=== PATIENT | female | born 1985 | race Two or more races ===

== ENCOUNTER 2021-02-06 18:27 | Emergency (ER) | payer MEDICARE, MEDICAID, SELFPAY ==
--- NOTE | ~2021-02-06 | XR_ITS ---
EXAMINATION: XR CHEST CLINICAL INFORMATION: Shortness of breath. Chest pain. COMPARISON: Chest x-ray 09/12/2012 TECHNIQUE: Frontal view of the chest was obtained. 1913 hours FINDINGS: No significant abnormality is noted involving the heart, lungs, mediastinum, bony thorax or soft tissues. XR/XR chest 1V IMPRESSION: Unremarkable examination.
[2021-02-06 19:09] VITALS: BP 127/79; PULSE 76; RESP 16; TEMP 36.9; O2SAT 99; BMI 17.6
--- NOTE | 2021-02-06 19:16 | ECG_ITS ---
Test Reason : sob Blood Pressure : / mmHG Vent. Rate : 077 BPM Atrial Rate : 077 BPM P-R Int : 144 ms QRS Dur : 100 ms QT Int : 372 ms P-R-T Axes : 081 065 069 degrees QTc Int : 420 ms Normal sinus rhythm Incomplete right bundle branch block Borderline ECG No significant changes when compared with the previous EKG of 12 september 2012 Referred By: Generic ED Physician Electronically Signed By:GULSHAN PISANO
[2021-02-06 19:33] LABS: MANUAL DIFF FLAG NO
[2021-02-06 19:37] LABS: Basophils Percent Auto 0.7 % (0-2); Eosinophils Absolute Auto 0.1 X10*3/uL (0.0-0.4); Eosinophils Percent Auto 1.7 % (0-4); Hematocrit 36.1 % (37.0-47.0); Imm Gran Abs Auto 0.01 X10*3/uL (0.00-0.03); Imm Gran Pct Auto 0.2 % (0.0-0.4); Lymphocytes Percent Auto 34.1 % (20-40); Mean Corpuscular HGB Conc 33.2 g/dl (31.0-35.0); Mean Corpuscular Hemoglobin 29.3 pg (27.0-33.0); Mean Corpuscular Volume 88.3 fL (80.0-98.0); Monocytes Absolute Auto 0.4 X10*3/uL (0.1-1.2); Monocytes Percent Auto 7.3 % (2-11); Neutrophils Absolute Auto 3.2 x10*3/uL (2.0-8.3); Platelet Count 294 X10*3/uL (160-400); Red Blood Count 4.09 X10*6/uL (4.20-5.50); Red Cell Distribution Width 11.9 % (11.0-16.0); White Blood Count 5.8 X10*3/uL (4.8-10.8)
[2021-02-06 19:52] LABS: COVID-19 Test Negative (Negative)
[2021-02-06 19:53] LABS: Anion Gap 10 (12-20); Blood Urea Nitrogen 17 mg/dL (9-16); Calcium 9.3 mg/dL (8.4-10.2); Carbon Dioxide 32 mmol/L (22-29); Chloride 104 mmol/L (96-108); Creatinine Clr Calc Pharmacy 54.6; Estimated Glomerular Filt Rate > 60; Glucose Random 83 mg/dL (60-115); Potassium 3.7 mmol/L (3.3-5.1); Sodium 142 mmol/L (135-145)
[2021-02-06 19:58] LABS: Troponin-I High Sensitivity < 3.5 ng/L (<3.5-17.0)
--- NOTE | 2021-02-06 20:58 | ED_ITS ---
HPI - SOB/Dyspnea General Chief Complaint: Dyspnea Stated Complaint: SOB/Lung pain Time Seen by Provider: 02/06/21 21:00 Source: patient Mode of arrival: ambulatory Limitations: no limitations History of Present Illness HPI Narrative: 35-year-old female presents with shortness of breath and ?funny feeling to the left chest ?. MD elicited complaint: shortness of breath Pertinent past history: other (Spontaneous pneumothorax) Onset (ago): day(s) (1) Context: other (History of spontaneous pneumothorax) Timing: intermittent Severity: mild Exacerbating factors: exertion and inspiration Relieving factors: rest Associated symptoms: denies other symptoms Treatment prior to arrival: none Related Data Previous Rx's Medication Instructions Recorded famotidine 20 mg tablet (Pepcid) 20 mg PO DAILY #30 tab 02/06/21 Allergies Allergy/AdvReac Type Severity Reaction Status Date / Time No Known Allergies Allergy Unverified 02/06/21 19:15 Review of Systems Review of Systems: Constitutional: No Weight loss, No Fever, No Chills, No Night Sweats, No Fatigue, No Malaise ENT/Mouth: No Hearing loss, No Ear Pain, No Nasal Congestion, No Sinus Pain, No Hoarseness, No sore throat, No Rhinorrhea, No Swallowing Difficulty Eyes: No Eye Pain, No Swelling, No Redness, No Foreign Body, No Discharge, No Vision Changes Cardiovascular: No Chest Pain, positive SOB, No Dyspnea on Exertion, No Ort hopnea, No Edema, No Palpitations Respiratory: No Cough, No Sputum, No Wheezing, No Smoke Exposure, No Dyspnea Gastrointestinal: No Nausea, No Vomiting, No Diarrhea, No Constipation, No abdominal Pain, No Hematochezia, No Melena Genitourinary: no irregular bleeding, No Dysuria, No Urinary Frequency, No Hematuria, No Urinary Incontinence, No Urgency, No Flank Pain, No Urinary Flow Changes, No Hesitancy Musculoskeletal: No joint pain, No Myalgias, No Joint Swelling Skin: No Skin Lesions, No rash Neuro: No Weakness, No Numbness, No Paresthesias, No Loss of Consciousness, No Dizziness, No Headache Psych: No Anxiety/Panic, No Depression, No SI/HI/AH/VH, No Social Issues Heme/Lymph: No Bruising, No Bleeding,No Lymphadenopathy Endocrine: No Polyuria, No Polydipsia, No Temperature Intolerance Yes all other systems are reviewed and are negative PMFSH Past Medical History Attestation statement: The following information was validated with the patient. Source: old records reviewed Medical History Asthma Heart murmur Pneumothorax Social History Social History Advance Directives: No Physical Exam Vital Signs: Vital Signs: Last Vital Signs Temp 98.4 F 02/06/21 19:09 Pulse 77 02/06/21 21:52 Resp 16 02/06/21 21:52 BP 108/67 02/06/21 21:52 Pulse Ox 99 02/06/21 21:52 BMI result Body Mass Index 17.6 Appearance: Alert. Oriented X3. No acute distress. Eyes: Pupils equal, round and reactive to light. ENT: Pharynx normal. Neck: Normal inspection. Neck supple. CVS: Normal heart rate and rhythm. Pulses normal. Respiratory: No respiratory distress. Breath sounds normal. Abdomen: Soft and nontender. Skin: Skin warm and dry. Normal skin color. Normal skin turgor. Extremities: No lower extremity edema. Gait well-balanced well coordinated. Neuro: No motor deficit. No sensory deficit. Cranial nerves 2-12 intact. Course Course Course Narrative: 35-year-old female presents with shortness of breath and a funny feeling left side of the chest. States this pain is a burning pressure. Patient does have a history of spontaneous pneumothorax and GERD. EKG shows incomplete right bundle branch block, does have a history of arrhythmia. Tropon in is negative. Carbon dioxide is elevated at 32, patient does smoke cigarettes. Even unlabored respirations. Chest x-ray is negative for acute findings. No indication of pneumothorax or other finding. Patient is speaking in complete sentence, even unlabored respirations. Afebrile. Nontoxic. Wells PE score is 0. No recent sick contacts. COVID test is negative. O2 sat 99% on room air. Plan of care is to have patient follow-up with Pulmonary. Will treat with Maalox and Pepcid for GERD. Patient was advised to follow-up with primary care physician for arrhythmia as well as follow-up. Patient agrees with this plan of care. Patient verbalized understanding of and agrees to plan care discharge home. MDM - SOB/Dyspnea Differential Diagnosis Differential diagnosis: Likely pneumonia, asthma with exacerbation, pleural effusion and anemia Medical Records Attestation: I reviewed the patient's medical records. Lab Data Attestation: I reviewed the patient's lab results. Result diagrams: 02/06/21 19:27 02/06/21 19:27 Labs: Lab Results 02/06/21 02/06/21 02/06/21 Range/Units 19:27 19:27 19:27 WBC 5.8 (4.8-10.8) X10*3/uL RBC 4.09 L (4.20-5.50) X10*6/uL Hgb 12.0 (12.0-16.0) g/dl Hct 36.1 L (37.0-47.0) % MCV 88.3 (80.0-98.0) fL MCH 29.3 (27.0-33.0) pg MCHC 33.2 (31.0-35.0) g/dl RDW 11.9 (11.0-16.0) % Plt Count 294 (160-400) X10*3/uL MPV 10.0 (9.4-12.3) fL Immature Gran % (Auto) 0.2 (0.0-0.4) % Neut % (Auto) 56.0 (45-73) % Lymph % (Auto) 34.1 (20-40) % [place] % (Auto) 7.3 (2-11) % Eos % (Auto) 1.7 (0-4) % Baso % (Auto) 0.7 (0-2) % Lymph # (Auto) 2.0 (1.2-4.9) X10*3/uL [place] # (Auto) 0.4 (0.1-1.2) X10*3/uL Eos # (Auto) 0.1 (0.0-0.4) X10*3/uL Baso # (Auto) 0.0 (0.0-0.2) X10*3/uL Abs Immat Gran (auto) 0.01 (0.00-0.03) X10*3/uL Absolute Neuts (auto) 3.2 (2.0-8.3) x10*3/uL Absolute Nucleated RBC 0.000 (0.0-0.012) X10*3/uL Nucleated RBC % (auto) 0.0 (0.0-0.2) /100WBC Sodium 142 (135-145) mmol/L Potassium 3.7 (3.3-5.1) mmol/L Chloride 104 (96-108) mmol/L Carbon Dioxide 32 H (22-29) mmol/L Anion Gap 10 L (12-20) BUN 17 H (9-16) mg/dL Creatinine 1.04 (0.5-1.4) mg/dL Estim Creat Clear Calc 54.6 Estimated GFR > 60 Random Glucose 83 (60-115) mg/dL Calcium 9.3 (8.4-10.2) mg/dL Troponin I High Sens < 3.5 (<3.5-17.0) ng/L COVID-19 (PATTI) (Negative) COVID-19 Clin Com 02/06/21 Range/Units 19:27 WBC (4.8-10.8) X10*3/uL RBC (4.20-5.50) X10*6/uL Hgb (12.0-16.0) g/dl Hct (37.0-47.0) % MCV (80.0-98.0) fL MCH (27.0-33.0) pg MCHC (31.0-35.0) g/dl RDW (11.0-16.0) % Plt Count (160-400) X10*3/uL MPV (9.4-12.3) fL Immature Gran % (Auto) (0.0-0.4) % Neut % (Auto) (45-73) % Lymph % (Auto) (20-40) % [place] % (Auto) (2-11) % Eos % (Auto) (0-4) % Baso % (Auto) (0-2) % Lymph # (Auto) (1.2-4.9) X10*3/uL [place] # (Auto) (0.1-1.2) X10*3/uL Eos # (Auto) (0.0-0.4) X10*3/uL Baso # (Auto) (0.0-0.2) X10*3/uL Abs Immat Gran (auto) (0.00-0.03) X10*3/uL Absolute Neuts (auto) (2.0-8.3) x10*3/uL Absolute Nucleated RBC (0.0-0.012) X10*3/uL Nucleated RBC % (auto) (0.0-0.2) /100WBC Sodium (135-145) mmol/L Potassium (3.3-5.1) mmol/L Chloride (96-108) mmol/L Carbon Dioxide (22-29) mmol/L Anion Gap (12-20) BUN (9-16) mg/dL Creatinine (0.5-1.4) mg/dL Estim Creat Clear Calc Estimated GFR Random Glucose (60-115) mg/dL Calcium (8.4-10.2) mg/dL Troponin I High Sens (<3.5-17.0) ng/L COVID-19 (PATTI) Negative (Negative) COVID-19 Clin Com See Note Imaging Data Chest x-ray: Attestation: I personally reviewed and interpreted this imaging study as follows: Radiologist's impression: EXAMINATION: XR CHEST CLINICAL INFORMATION: Shortness of breath. Chest pain. COMPARISON: Chest x-ray 09/12/2012 TECHNIQUE: Frontal view of the chest was obtained. 1913 hours FINDINGS: No significant abnormality is noted involving the heart, lungs, mediastinum, bony thorax or soft tissues. XR/XR chest 1V IMPRESSION: Unremarkable examination. ECG Data Attestation: I personally reviewed and interpreted this ECG as follows: ECG interpretation date: 02/07/21 ECG interpretation time: 19:20 Prior ECG tracings: not available for review Interpretation: Ventricular rate 77 beats per minute [place] interval 144 QRS 100 QT 372 QTC 420 normal sinus rhythm with incomplete right bundle-branch block no indication of ST elevation or depression no indication of ischemia. No prior EKGs for comparison. Discharge Plan Discharge Clinical Impression: Shortness of breath, Acid reflux Patient Disposition: Home, Self-Care Instructions: Gastroesophageal Reflux Disease (ED), Shortness of Breath (ED) Additional Instructions: You were evaluated for shortness of breath. Your chest x-ray is normal. Your EKG shows an incomplete right bundle branch block, and you do have a known cardiac arrhythmia. Please follow-up with primary care physician for further workup. Cardiac enzymes are negative. Lab values are within normal limits. You may also consider following up with primary care physician for reflux. I prescribed Pepcid. Please take 20 mg daily. Please stop smoking. For shortness of breath please follow-up with Pulmonary. I referred you to Dr. Esquivel. Please call and request an appointment. Thank you for choosing this emergency department for evaluation. Please follow-up with primary care physician as needed. Return to the emergency department for any new, concerning, or worsening symptoms. Prescriptions: New famotidine [Pepcid] 20 mg tablet 20 mg PO DAILY Qty: 30 RF: 3 Referrals: Ryder Esquivel MD [Physician] - 2 days (Shortness of breath, history of spontaneous pneumothorax) Stand Alone Forms: Work/School Release Interventions: ED Discharge Assessment Last Done: 02/06/21 21:53 Discharge Date/Time: 02/06/21 21:57
[2021-02-06 21:52] VITALS: BP 108/67; PULSE 77; RESP 16; O2SAT 99
== END 2021-02-06 21:57 | disposition home or self-care (01) ==
PROVIDERS: Emergency Provider Emergency Medicine
DX: R06.02 Shortness of breath (principal); K21.9 Gastro-esophageal reflux disease without esophagitis; J45.909 Unspecified asthma, uncomplicated; Z20.822 Contact with and (suspected) exposure to COVID-19
CPT/HCPCS: 36415; 71045; 80048; 84484; 85025; 87635; 93005; 99284

== ENCOUNTER 2022-07-02 15:28 | Emergency (ER) | payer MEDICARE, MEDICAID, SELFPAY ==
--- NOTE | ~2022-07-02 | CT_ITS ---
EXAMINATION: CT ABDOMEN AND PELVIS WITHOUT CONTRAST CLINICAL INFORMATION: Bilateral lower quadrant/flank pain. COMPARISON: None available. TECHNIQUE: Multidetector volumetric imaging was performed from the superior aspect of the liver through the pubic symphysis. Sagittal and coronal reformatted images were obtained on the technologist's workstation. This CT examination was performed using dose optimization techniques as appropriate, variously including the following: *Automated exposure control *Adjustment of mA and/or kV according to patient size (this includes techniques or standardized protocols for targeted exams where dose is matched to indication/reason for exam; i.e. extremities or head) *Use of iterative reconstruction technique DLP: 245 mGy-cm FINDINGS: LUNG BASES: The visualized lung bases are unremarkable. LIVER, GALLBLADDER, AND BILIARY TREE: The liver is normal in size, shape, and attenuation. No focal hepatic lesion or biliary ductal dilatation is present. The gallbladder is unremarkable with no evidence of radiopaque gallstones, gallbladder wall thickening, or obvious pericholecystic inflammatory changes. PANCREAS: Unremarkable. SPLEEN: Unremarkable. ADRENAL GLANDS: Unremarkable. KIDNEYS AND URETERS: The kidneys are normal in size, shape, and attenuation. No hydronephrosis, hydroureter, or calculi seen. No perinephric stranding. BLADDER: Nondistended and unremarkable. GASTROINTESTINAL TRACT: Hyperdensity within the colon which may represent previously administered oral contrast. No small or large bowel obstruction. No bowel wall thickening or inflammatory change. Partially visualized and unremarkable appendix. PERITONEAL CAVITY: No intra-abdominal free air or free fluid. No intra-abdominal mass or organized fluid collection/abscess formation. ABDOMINAL WALL: No significant hernia is appreciated. LYMPH NODES: No significant lymphadenopathy. VASCULAR: Unremarkable. PELVIC VISCERA: The uterus and adnexa are unremarkable. OSSEOUS STRUCTURES: Unremarkable. CT/CT abdomen pelvis wo IV con IMPRESSION: 1. No hydronephrosis or nephrolithiasis. Nondistended and unremarkable urinary bladder. 2. No small or large bowel obstruction. No bowel wall thickening or inflammatory change. Partially visualized and unremarkable appendix. 3. No intra-abdominal mass, lymphadenopathy, or ascites. Fleischner guidelines were followed.
[2022-07-02 15:48] VITALS: BP 121/67; PULSE 84; RESP 16; TEMP 37.3; O2SAT 96; BMI 18.6
--- NOTE | 2022-07-02 15:48 | ED_ITS ---
HPI - General Adult General Chief complaint: Abdominal Pain Stated complaint: Abdominal pain Time Seen by Provider: 07/02/22 18:10 Source: patient Mode of arrival: ambulatory Limitations: no limitations History of Present Illness HPI narrative: 36-year-old healthy male presents to the ED for bilateral lower abdominal pain radiating to flanks for one week. Patient denies any fever, chills, testicular pain, hematuria, penile discharge, penile lesions, or dysuria. Patient states nausea but no vomiting. Patient denies any recent trauma. Related Data Previous Rx's Medication Instructions Recorded famotidine 20 mg tablet (Pepcid) 20 mg PO DAILY #30 tabs 02/06/21 naproxen 500 mg tablet 500 mg PO BID PRN pain 7 days #14 07/02/22 tabs Allergies Allergy/AdvReac Type Severity Reaction Status Date / Time No Known Allergies Allergy Unverified 02/06/21 19:15 Review of Systems Review of Systems: Bilateral lower abdominal pain Yes all other systems are reviewed and are negative PMFSH Past Medical History Medical History Asthma Heart murmur Pneumothorax Social History Social History Smoked in Last 30 Days: Yes Use of substances other than those prescribed or required for medical reasons: No Advance Directives: No Advance Directives Information Provided: No Physical Exam ED Vital Signs: Vital Signs - 24 hr 07/02/22 15:48 07/02/22 18:52 07/02/22 20:52 Temperature 99.2 F 98.2 F 98.4 F Pulse Rate 84 61 71 Respiratory Rate 16 16 16 Blood Pressure 121/67 109/58 L 94/52 L Pulse Oximetry 96 100 99 Oxygen Delivery Method Room Air Room Air Room Air 07/02/22 22:04 Temperature 97.9 F Pulse Rate 62 Respiratory Rate 18 Blood Pressure 106/63 Pulse Oximetry 98 Oxygen Delivery Method Room Air BMI result Body Mass Index 18.6 Const General: cooperative, healthy appearing, comfortable, no acute distress, well developed, alert, awake and Physically active Orientation/consciousness: oriented to person, oriented to place, oriented to time and patient oriented x3 HENMT Head: Yes normal to inspection, Yes No palpable skull fracture present, Yes normocephalic, Yes atraumatic and No abrasion Eyes General: appearance normal, both eyes and all related structures Neck Neck: Yes normal visual inspection, Yes full ROM, Yes no lymphadenopathy, Yes no meningeal signs, Yes trachea midline, Yes supple, No anterior neck swelling and No tender Chest Chest palpation & inspection: normal inspection of the chest and normal palpation of entire chest wall Resp Effort & Inspection: normal respiratory effort and able to speak in complete sentences Auscultation: clear to auscultation bilaterally Cardio Jugular venous distension: no JVD Heart sounds: S1 normal heart sound present and S2 normal heart sound present GI Inspection: Yes normal to inspection and No abdominal wall ecchymosis Palpation (GI): Soft to palpation, not firm, Tenderness to palpation present (GI) in the LLQ and in the RLQ, no guarding and not rigid General: No CVA tenderness and Yes no CVA tenderness Back/Spine/Pelvis Back: no CVA tenderness, No CVA tenderness and No back tenderness Skin General skin exam: no rashes or lesions noted and elasticity normal Neuro General: oriented to person, oriented to place, oriented to time, patient oriented x3, gait normal, tone normal, moves all extremities, Normal light touch and pain sensation, no meningeal signs, no focal motor deficits, CN's II-XI intact bilaterally and normal sensation to monofilament Extrem General: Yes normal to inspection and Yes full ROM Psych Appearance: grossly normal, well kempt and not disheveled Course Course Course Narrative: This is an RME: Additional HPI, ROS, PE not included below will be deferred to primary provider. 36 y/o M, hx of asthma, presenting to the emergency department for evaluation of lower abdominal pain x 1 week. Also reporting burning sensation in bilateral flanks. Has been taking ibuprofen without any relief. +nausea. No vomiting or diarrhea. VSS in triage. Pt stable to return to the waiting room until treatment room becomes available. Plan: Labs, Zofran 4mg PO, and UA ordered. Medications Administered Discontinued Medications Generic Name Dose Route Start Last Admin Trade Name Freq PRN Reason Stop Dose Admin Ketorolac Tromethamine 30 mg 07/02/22 19:51 07/02/22 20:01 Ketorolac Tromethamine 30 Mg/Ml Vial IM 07/02/22 19:52 30 mg ONCE ONE Administration Ondansetron HCl 4 mg 07/02/22 15:51 07/02/22 15:55 Ondansetron Odt 4 Mg Tab.Duane CASAS 07/02/22 15:52 4 mg ONCE ONE Administration Medical Decision Making Medical Decision Making [facility] Narrative: 36-year-old male healthy presents to ED for bilateral lower abdominal pain and flank pain for one week. Patient denies any near any urinary symptoms. Initial RME labs normal. Waiting for UA. 7:34pm- UA shows luekoesterase. patient was a hard stick and no longer wanted any person try for an IV for a third time. patinet informed wanted IV for ct scan to check fo appendix. Patient prefer to do imaging without IV. Dry CT scan IV ordered. 9:50pm. CT scan abdomen normal. UA negative. Patient informed to follow-up with his primary care provider Differential Diagnosis Differential Diagnoses: The differential diagnosis associated with the presentation includes (Appendicitis colitis, kidney stones, UTI, cholecystitis, pylenopheritis, ) Admission/Observation Consideration of admission/observation: Escalation of care including admission/observation considered Lab Data [facility] Lab Attestation statement: I reviewed the patient's lab results. 07/02/22 16:02 07/02/22 16:02 Labs: Lab Results 07/02/22 07/02/22 07/02/22 Range/Units 16:02 16:02 18:56 WBC 6.1 (4.8-10.8) X10*3/uL RBC 4.52 L (4.60-5.80) X10*6/uL Hgb 13.3 L (14.0-18.0) g/dl Hct 39.3 L (42.0-52.0) % MCV 86.9 (80.0-98.0) fL MCH 29.4 (27.0-33.0) pg MCHC 33.8 (31.0-36.0) g/dl RDW 11.9 (11.0-16.0) % Plt Count 254 (160-400) X10*3/uL MPV 10.0 (9.4-12.4) fL Immature Gran % (Auto) 0.3 (0.0-0.4) % Neut % (Auto) 56.3 (45-73) % Lymph % (Auto) 33.8 (20-40) % [place] % (Auto) 8.2 (2-11) % Eos % (Auto) 0.7 (0-4) % Baso % (Auto) 0.7 (0-2) % Lymph # (Auto) 2.1 (1.2-4.9) X10*3/uL [place] # (Auto) 0.5 (0.1-1.2) X10*3/uL Eos # (Auto) 0.0 (0.0-0.4) X10*3/uL Baso # (Auto) 0.0 (0.0-0.2) X10*3/uL Abs Immat Gran (auto) 0.02 (0.00-0.03) X10*3/uL Absolute Neuts (auto) 3.4 (2.0-8.3) x10*3/uL Absolute Nucleated RBC 0.000 (0.0-0.012) X10*3/uL Nucleated RBC % (auto) 0.0 (0.0-0.2) /100WBC Sodium 139 (135-145) mmol/L Potassium 3.8 (3.3-5.1) mmol/L Chloride 104 (96-108) mmol/L Carbon Dioxide 27 (22-29) mmol/L Anion Gap 12 (12-20) BUN 14 (9-16) mg/dL Creatinine 1.04 (0.5-1.4) mg/dL Estim Creat Clear Calc 66.7 Estimated GFR > 60 Random Glucose 93 (60-115) mg/dL Calcium 9.1 (8.4-10.2) mg/dL Magnesium 1.9 (1.6-2.6) mg/dL Total Bilirubin 0.6 (0.0-1.0) mg/dL Direct Bilirubin 0.2 (0.0-0.5) mg/dL AST 21 (5-37) U/L ALT 17 (0-40) U/L Alkaline Phosphatase 51 (39-117) U/L Total Protein 6.9 (6.5-8.0) g/dL Albumin 4.3 (3.5-5.0) g/dL Lipase 19 (8-78) U/L Urine Color Yellow Urine Appearance Clear Urine pH 6.5 (5.0-9.0) Ur Specific [place] >= 1.030 H (1.005-1.025) Urine Protein 30 (1+) H (Neg-Trace) mg/dL Urine Glucose (UA) Negative (Negative) mg/dL Urine Ketones Trace (Negative) mg/dL Urine Blood Negative (Negative) Urine Nitrite Negative (Negative) Ur Leukocyte Esterase Trace H (Negative) Urine RBC 0-2 (0-2) /HPF Urine WBC 0-5 (0-5) /HPF Ur Squamous Epith Cells 0-2 (0-2) /HPF Urine Bacteria None Seen (None Seen) Hyaline Casts 0-2 (0-2) /LPF Independent Interpretation I performed an independent interpretation of an: CT Scan Radiology Impression Discussion of test interpretation with radiology: I have reviewed the radiologist's reading. Prescription Management I considered prescription management with: Pain Medication Discharge Plan Discharge Clinical Impression: Abdominal pain Patient Disposition: Home, Self-Care Instructions: Abdominal Pain (ED) Additional Instructions: In the ED immediately for any abdominal pain, hematuria, dysuria, flank pain, fever, chills, genital lesions, genital discharge, nausea, vomiting, or any other concerning symptoms. Please follow up with PCP Prescriptions: New naproxen 500 mg tablet 500 mg PO BID PRN (Reason: pain) 7 Days Qty: 14 0RF No Action famotidine [Pepcid] 20 mg tablet 20 mg PO DAILY Qty: 30 3RF Stand Alone Forms: Work/School Release Interventions: ED Discharge Assessment Last Done: 07/02/22 22:36 Discharge Date/Time: 07/02/22 22:36 Print Language: Japanese
[2022-07-02] MEDS: Ondansetron ODT 4 MG TAB.RAPDIS TRANSLINGU (15:55)
[2022-07-02 16:07] LABS: MANUAL DIFF FLAG NO
[2022-07-02 16:09] LABS: Basophils Percent Auto 0.7 % (0-2); Eosinophils Percent Auto 0.7 % (0-4); Hematocrit 39.3 % (42.0-52.0); Hemoglobin 13.3 g/dl (14.0-18.0); Imm Gran Abs Auto 0.02 X10*3/uL (0.00-0.03); Imm Gran Pct Auto 0.3 % (0.0-0.4); Lymphocytes Absolute Auto 2.1 X10*3/uL (1.2-4.9); Lymphocytes Percent Auto 33.8 % (20-40); Mean Corpuscular HGB Conc 33.8 g/dl (31.0-36.0); Mean Corpuscular Hemoglobin 29.4 pg (27.0-33.0); Mean Corpuscular Volume 86.9 fL (80.0-98.0); Monocytes Absolute Auto 0.5 X10*3/uL (0.1-1.2); Monocytes Percent Auto 8.2 % (2-11); Neutrophils Absolute Auto 3.4 x10*3/uL (2.0-8.3); Neutrophils Percent Auto 56.3 % (45-73); Platelet Count 254 X10*3/uL (160-400); Red Blood Count 4.52 X10*6/uL (4.60-5.80); Red Cell Distribution Width 11.9 % (11.0-16.0); White Blood Count 6.1 X10*3/uL (4.8-10.8)
[2022-07-02 16:31] LABS: Alanine Aminotransferase 17 U/L (0-40); Albumin Level 4.3 g/dL (3.5-5.0); Alkaline Phosphatase 51 U/L (39-117); Anion Gap 12 (12-20); Aspartate Amino Transferase 21 U/L (5-37); Bilirubin Direct 0.2 mg/dL (0.0-0.5); Bilirubin Total 0.6 mg/dL (0.0-1.0); Blood Urea Nitrogen 14 mg/dL (9-16); Calcium 9.1 mg/dL (8.4-10.2); Carbon Dioxide 27 mmol/L (22-29); Chloride 104 mmol/L (96-108); Creatinine Clr Calc Pharmacy 66.7; Estimated Glomerular Filt Rate > 60; Glucose Random 93 mg/dL (60-115); Lipase 19 U/L (8-78); Magnesium 1.9 mg/dL (1.6-2.6); Potassium 3.8 mmol/L (3.3-5.1); Sodium 139 mmol/L (135-145); Total Protein 6.9 g/dL (6.5-8.0)
[2022-07-02 18:52] VITALS: BP 109/58; PULSE 61; RESP 16; TEMP 36.8; O2SAT 100
[2022-07-02 19:03] LABS: Appearance Urine Clear; Color Urine Yellow; Glucose Urine UA Negative (Negative); Leukocyte Esterase Urine Trace (Negative); Nitrite Urine Negative (Negative); PH 6.5 (5.0-9.0); Specific Gravity - Urine >= 1.030 (1.005-1.025); UMIC TRIGGER UACC YES; Urine Blood Negative (Negative); Urine Ketones Trace mg/dL (Negative); Urine Protein 30 (1+) mg/dL (Neg-Trace)
[2022-07-02 19:07] LABS: Bacteria Urine None Seen (None Seen); Hyaline Casts Urine 0-2 /LPF (0-2); RBC Urine 0-2 /HPF (0-2); Squamous Epithelial Cell Urine 0-2 /HPF (0-2); WBC Urine 0-5 /HPF (0-5)
[2022-07-02] MEDS: Ketorolac Tromethamine 30 MG/ML VIAL IM (20:01)
--- NOTE | 2022-07-02 20:04 | PC.NURSE ---
patient medicated w/ toradol as ordered for 5/10 abdominal pain radiating to bilateral flanks. awaiting results of CT.
[2022-07-02 20:52] VITALS: BP 94/52; PULSE 71; RESP 16; TEMP 36.9; O2SAT 99
[2022-07-02 22:04] VITALS: BP 106/63; PULSE 62; RESP 18; TEMP 36.6; O2SAT 98
--- NOTE | 2022-07-02 22:31 | PC.NURSE ---
late entry- nathans rn and second rn attempted iv placement. fito monsivais made aware. per joan iv medications cancelled pt okay to have im and po route medications according to joan fito monsivais
--- NOTE | 2022-07-02 22:35 | PC.NURSE ---
vss. skin pwd. pt reports no nausea at time of discharge. pt reports 3/10 pain. pt provided with discharge packet and work note at this time. pt ambulatory at discharge. pt verbalized understanding of discharge plan
== END 2022-07-02 22:36 | disposition home or self-care (01) ==
PROVIDERS: Physician Assistant Medical; Emergency Provider Emergency Medicine
DX: R10.30 Lower abdominal pain, unspecified (principal)
CPT/HCPCS: 36415; 74176; 80048; 80076; 81001; 81003; 83690; 83735; 85025; 96372; 99284; J1885

== ENCOUNTER 2024-08-24 21:00 | Emergency (ER) | payer MEDICARE, MEDICAID, SELFPAY ==
--- NOTE | 2024-08-24 | ECG_ITS ---
Test Reason : FALL Blood Pressure : */* mmHG Vent. Rate : 84 BPM Atrial Rate : 84 BPM P-R Int : 164 ms QRS Dur : 96 ms QT Int : 350 ms P-R-T Axes : 77 63 68 degrees QTcB Int : 413 ms Normal sinus rhythm Incomplete right bundle branch block Borderline ECG When compared with ECG of 06-Feb-2021 19:20, No significant change was found Referred By: Generic ED Physician Electronically Signed By: Gabe Purcell
--- NOTE | ~2024-08-24 | CT_ITS ---
CLINICAL HISTORY: trauma CT cervical spine without contrast Comparison: None provided Findings: No acute fracture of the cervical spine. Metal artifacts noted. Straightening of the cervical lordosis. No significant listhesis. Disc osteophyte complexes with mild spinal canal stenosis including C4-C5 and C5-C6. Facet arthropathy and ligament calcifications are multifocal. No paraspinal hematoma. Mild motion of the scarring of the imaged lung apices. Nodule of the right lobe of the thyroid measures 1 cm selectively. Variant ossification centers of the imaged hyoid bone. IMPRESSION: 1. No acute fracture of the cervical spine. 2. 1 cm nodule right lobe of the thyroid. Recommend outpatient ultrasound. This document has been electronically signed by: Hemal Lucero MD on 08/24/2024 23:31:57
--- NOTE | ~2024-08-24 | CT_ITS ---
CLINICAL HISTORY: trauma CT head without contrast Comparison: None provided Findings: No acute intracranial hemorrhage. No midline shift or hydrocephalus. No arterial territorial infarction by CT, accounting for artifacts. No intra-axial mass-effect defined by CT at this time. Mucosal thickening of the imaged paranasal sinuses including imaged ethmoid air cells. Imaged mastoid air cells are well aerated. No acute skull fracture. Anterior nasal bone lucencies appear old as partially imaged in the [id number]. IMPRESSION: No acute intracranial abnormality by CT. This document has been electronically signed by: Hemal Lucero MD on 08/24/2024 23:33:15
[2024-08-24 21:06] VITALS: BMI 18.4
[2024-08-24 21:23] VITALS: BP 115/73; PULSE 77; RESP 12; TEMP 36.6; O2SAT 97
[2024-08-24 21:28] LABS: MANUAL DIFF FLAG NO
[2024-08-24 21:29] LABS: Hematocrit 33.3 % (42.0-52.0); Hemoglobin 11.8 g/dl (14.0-18.0); Imm Gran Abs Auto 0.01 X10*3/uL (0.00-0.03); Imm Gran Pct Auto 0.2 % (0.0-0.4); Lymphocytes Absolute Auto 1.7 X10*3/uL (1.2-4.9); Mean Corpuscular HGB Conc 35.4 g/dl (31.0-36.0); Mean Corpuscular Hemoglobin 29.3 pg (27.0-33.0); Mean Corpuscular Volume 82.6 fL (80.0-98.0); NRBC Abs Auto 0.000 X10*3/uL (0.0-0.012); NRBC Pct Auto 0.0 /100WBC (0.0-0.2); Platelet Count 252 X10*3/uL (160-400); Red Blood Count 4.03 X10*6/uL (4.60-5.80); White Blood Count 4.1 X10*3/uL (4.8-10.8)
--- OUTSIDE RECORDS SUMMARY | 2024-08-24 21:40 | XMS_ITS | Clinical Summary ---
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 No known medications Encounters Date Type Department Care Team Description 08/17/2024 Professional Billing [facility] [address] [address] Deepa Parikh MD Seizure-like activity (HCC) 08/16/2024 Minor Procedure/Test NON [facility] [address] [place] [address] Montrell Ziegler MD Discharge Disposition: Discharged to home or self care (routine discharge) 08/16/2024 Minor Procedure/Test NON [facility] [address] [place] [address] Deepa Parikh MD from Last 3 Months Social History Tobacco Use Types Packs/Day Years Used Date Smoking Tobacco: Never Assessed Sex and Gender Information Value Date Recorded Sex Assigned at Not on file Legal Sex Male 4:04 PM EDT Gender Identity Not on file Sexual Orientation Not on file Last Filed Vital Signs Vital Sign Reading Time Taken Comments Blood Pressure 118/72 05/15/2016 4:00 PM EDT Pulse 84 05/15/2016 4:00 PM EDT Temperature 37.3 C (99.2 F) 05/14/2016 4:15 PM EDT Respiratory Rate 18 05/14/2016 4:15 PM EDT Oxygen Saturation - - Inhaled Oxygen Concentration - - Weight - - Height - - Body Mass Index - - Plan of Treatment Health Maintenance Due Date Last Done Comments Hepatitis C Screening 1985 DTaP/Tdap/Td (1 - Tdap) 2004 Hep B (1 of 3 - 19+ 3-dose series) 2005 COVID-19 Vaccine (2023-2 5 season) 2023 Influenza (#1) 2024 Zoster (Shingrix) (1 of 2) 2036 HPV Vaccine Aged Out No longer eligi ble based on patient's age to complete this topic Hep A Aged Out No longer eligi ble based on patient's age to complete this topic Hib Aged Out No longer eligi ble based on patient's age to complete this topic Meningococcal ACWY Aged Out No longer eligible based on patient's age to complete this topic Pneumococcal Aged Out No longer eligi ble based on patient's age to complete this topic Procedures * Due to [place] [employer] law, this organization might not be sharing negative HIV tests. Procedure Name Priority Date/Time Associated Diagnosis Comments ELECTROENCEPHALOGRAM (EEG) 08/16/2024 from Last 3 Months Results * Due to [place] [employer] law, this organization might not be sharing negative HIV tests. 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 Photic stimulation was performed. Hyperventilation was performed Findings: There is a well formed, organized, symmetric, moderate voltage posterior dominant rhythm of 10-11 Hz which attenuates with eye opening. Drowsiness is characterized by drop out of overlying faster activities,mild slowing of the background, slow roving eye movements, and vertex waves Stage 2 sleep is characterized by K-complexes and sleep spindles Stepwise photic stimulation from 1-30 Hz produces no abnormal photicdriving or photoparoxysmal response. Hyperventilation was performed with no associated epileptiform dischargesor focal slowing. Single lead EKG shows regular rhythm, bradycardia in the 40- 46 range,with a prolonged QRS bundle branch pattern. No epileptiform discharges or electrographic seizures are seen. Impression: This is a normal 30 minute EEG in the awake and asleep phases. No epileptiform discharges or electrographic seizures are seen. A normal EEG does not rule out the clinical diagnosis of seizures orEpilepsy. EKG shows bradycardia at times between 40-46 with a prolonged QRS andbundle branch pattern. Please consider obtaining a 12 lead EKG. us Deepa Parikh MD PROCEDURES Fin al Result from Last 3 Months Insurance MEDICAID * Guarantor: [id number] YENNIFER COLON Account Type Relation to Patient Date of Phone Billing Address [employer] [address] [place] [address] * Guarantor: ADRI [employer]OLENT[employer] Account Type Relation to Patient Date of Phone Billing Address [facility] [place] [phone] (Home) ATTN: DAVID SALDANA [address] [place] [address]
--- OUTSIDE RECORDS SUMMARY | 2024-08-24 21:40 | XMS_ITS | Patient Health Record ---
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 Phone Radha Bartholomew MD Primary Care Provider Unav ailable Montrell Ziegler Unavailable [phone] Allergies No Known Allergies Results Component Value Reference Range Notes Basic Metabolic Panel [id number] Reviewed date:08/04/2024 07:59:44 AM Interpretation: Performing Lab:[facility], [address] [place] [address], Phone - [phone], Director - Balaji Notes/Report: Glucose 72 70-99 mg/dL BUN 14 6-20 mg/dL Creatinine 1.01 0.76-1.27 mg/dL eGFR 98 >59 mL/min/1.73 BUN/Creatinine Ratio 14 9-20 Sodium 140 134-144 mmol/L Potassium 4.7 3.5-5.2 mmol/L Chloride 101 96-106 mmol/L Carbon Dioxide, Total 22 20-29 mmol/L Calcium 9.9 8.7-10.2 mg/dL MR-Brain (C-/C+) CPT 35765 Reviewed date:08/03/2024 01:20:25 PM Interpretation: Performing Lab: Notes/Report: MR-Brain (C-/C+) CPT 13623 Reviewed date:08/23/2024 10:39:15 AM Interpretation: Performing Lab: Notes/Report: [facility] MRI at [facility] Accession Number: [id number] Patient Name: Luli Caceres Date of : 1985 Date of Exam: 08-18-2024 Referring Physician: Montrell Ziegler [facility], [address], [address] [place], [place] [address] Exam: MR Brain (C-/C+) CPT 03361 Room Description: Wing COLLINS Mob 1.5 HISTORY: Seizure-like activity. Vertigo. TECHNIQUE: Multiplanar multisequence MRI of the brain was obtained before and after the administration of 5 cc of Elucirem. COMPARISON: No prior studies are available for comparison at [facility]. FINDINGS: The ventricles and sulci are normal in size. There is no mass effect or extra-axial fluid collection. The hippocampal formations are normal and symmetric in signal, and there is no heterotopic morin matter. The flow voids through the [place] are maintained, and there is no restricted diffusion or abnormal susceptibility artifact. The major dural venous sinuses are patent, and there is no abnormal intracranial enhancement. The visualized extracranial soft tissues and orbital structures are unremarkable. Marrow signal is normal. IMPRESSION: Unremarkable MRI examination of the brain without and with contrast. Electronically Signed By: Tomas Barahona MD Reason For Referral No Information Medications Medication SIG (Take, Route, Frequency, Duration) Notes Start Date End Date Status Testosterone Cypionate 200 MG/ML Intramuscular; Duration: 7 Days Active Famotidine 20 MG Oral; Duration: 90 Days Active Tobramycin-dexAMETHasone 0.3-0.1 % Ophthalmic; Duration: 28 Days Not-Taking EPINEPHrine 0.3 MG/0.3ML Injection; Dura tion: 2 Days Active Albuterol Sulfate HFA 108 (90 Base) MCG/ACT Inhalation; Duration: 17 Days Active Social History Tobacco Use: Social History Observation Description Date Details (start date - stop date) Current Smoker NA - NA Sex Assigned At : Social History Observation Description Sex Assigned At Female AUDIT-C (Standard) Question Answer Notes Did you have a drink contain ing alcohol in the past year? Yes How often did you have a dri nk containing alcohol in the past year? Monthly or less (1 point) How many drinks did you have on a typical day when you were drinking in the past year? 1 or 2 drinks (0 point) How often did you have six o r more drinks on one occasion in the past year? Less than monthly (1 point) Points 2 Interpretation Negative Tobacco Control (Standard) Question Answer Notes Tobacco use: Current smoker How many cigarettes a day do you smoke? 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 Problem Mixed anxiety and depressive disorder (351392297) Anxiety and depression (F41.8) Active confirmed Problem History of anemia (672797533) History of anemia (Z86.2) Active confirmed Vital Signs Heart Rate 75 /min 08/03/2024 Oximetry 99 % 08/03/2024 Blood pressure diastolic 62 mm Hg 08/03/2024 Height 63 in 08/03/2024 Blood pressure systolic 100 mm Hg 08/03/2024 Weight 106 lbs 08/03/2024 BMI 18.78 kg/m2 08/03/2024 Encounters Encounter Location Date Provider Diagnosis [address] [address] 08/03/2024 Montrell Ziegler Seizure-like activity R56.[address] [address] 08/23/2024 Montrell Ziegler Assessments Encounter Date Diagnosis (ICD Code) Assessment Notes Treatment Notes Treatment Clinical Notes Section Notes 08/03/2024 Seizure-like activity (ICD-10 - R56.9) 38-year-old left handed transgender man presenting for neurology evaluation of multiple episodes of loss of consciousness with abnormal movements as stated in the HPI above. These events are somewhat stereotyped and typically preceded by a sensation of falling or abnormal movement with dizziness leading to loss of consciousness and abnormal movements during loss of consciousness. The patient typically does not remember anything until the next morning where he will have some residual symptoms of fatigue, and possible nausea or ongoing vertigo. Differential diagnosis for these events should include epilepsy versus nonepileptic episodes. For further evaluation we should proceed with a full seizure workup including an MRI brain with and without contrast as well as EEG. Both these were ordered today as well as a basic metabolic panel to check his kidney function prior to getting contrast for the MRI. Will plan to follow-up in clinic in 2 to 3 months to review the results of testing. 08/03/2024 Other 38-year-old left handed transgender man presenting for neurology evaluation of multiple episodes of loss of consciousness with abnormal movements as stated in the HPI above. These events are somewhat stereotyped and typically preceded by a sensation of falling or abnormal movement with dizziness leading to loss of consciousness and abnormal movements during loss of consciousness. The patient typically does not remember anything until the next morning where he will have some residual symptoms of fatigue, and possible nausea or ongoing vertigo. Differential diagnosis for these events should include epilepsy versus nonepileptic episodes. For further evaluation we should proceed with a full seizure workup including an MRI brain with and without contrast as well as EEG. Both these were ordered today as well as a basic metabolic panel to check his kidney function prior to getting contrast for the MRI. Will plan to follow-up in clinic in 2 to 3 months to review the results of testing. Plan Of Treatment Pending Test Test Name Order Date EEG, SLEEP DEPRIVED 08/03/2024 Next Appt Details Provider Name:Montrell Carlos A Kimbrough , 10/22/2024 04:40:00 PM, [address] [facility], [address], [place], [address], Insurance Providers Payer Name Payer Address Payer Phone Subscriber Number Group Number Insured Name Patient Relationship to Insured Coverage Start Date Coverage End Date [facility] [address] [place] [address] [id number] Elvin Cavazosgos Radhakayysaira Self - patient is the insured MEDICARE [address] [facility] [place] [id number] [phone] [id number] Part A only Radha Cacereskayysaira Self - patient is the insured Medical (General) History Medical History History ICD Code 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
--- OUTSIDE RECORDS SUMMARY | 2024-08-24 21:40 | XMS_ITS | Clinical Summary ---
Author Organization [facility] [email or web address] [facility] Address [address] [place] [address] Care Team Providers Care Diving Fisher Name Role Phone PcpClover Primary Care Provider [phone] Social History Tobacco Use Types Packs/Day Years Used Date Smoking Tobacco: Never Assessed Sex and Gender Information Value Date Recorded Sex Assigned at Not on file Legal Sex Male 8:42 AM EDT Gender Identity Not on file Sexual Orientation Not on file Plan of Treatment Health Maintenance Due Date Last Done Comments Depression: Screening Annual ly using PHQ-2/9 in Adults 18 yrs or above (or HM Modifier)([facility]) 2004 Hepatitis C Virus Infection in Adolescents and Adults: Screening (or Modifier) ([facility]) 2004 SDOH Screening Reminder: Fabiola ually for all adults ([facility]) 2004 Tobacco Smoking Cessation: i n Adults excluding Women: Behavioral and Pharmacotherapy Interventions ([facility]) 2004 DTaP/Tdap/Td Vaccines ([facility]) (1 - Tdap) 2005 COVID-19 Vaccine Screening: Initial Series and Booster Status ([facility]) ( - 2023- season) 2023 Flu Vaccination: Yearly for ages 18mos through 64 years (or Modifier)([facility]) 09/17/2024 Zoster/Shingles Vaccine Seri es Screening: Adults aged 18+ yrs (or HM Modifiers)([facility]) (1 of 2) 2036 Pneumococcal Vaccination Scr eening: Pts 0-19 & 19-49 yrs of age ([facility]) Aged Out No longer eligible based on patient's age to complete this topic Medical Devices Not on file Care Teams Diving Fisher Relationship Specialty Start Date End Date Clover Mcmillan PCP - General Family Medicine 09/20/20
[2024-08-24 21:52] LABS: Alanine Aminotransferase 16 U/L (0-40); Albumin Level 4.3 g/dL (3.5-5.0); Alkaline Phosphatase 43 U/L (39-117); Anion Gap 14 (12-20); Aspartate Amino Transferase 21 U/L (5-37); Blood Urea Nitrogen 12 mg/dL (9-16); Calcium 8.6 mg/dL (8.4-10.2); Carbon Dioxide 22 mmol/L (22-29); Chloride 107 mmol/L (96-108); Creatinine Clr Calc Pharmacy 68.1; Estimated Glomerular Filt Rate > 60; Magnesium 1.9 mg/dL (1.6-2.6); Potassium 3.2 mmol/L (3.3-5.1); Sodium 140 mmol/L (135-145); Total Protein 6.7 g/dL (6.5-8.0)
[2024-08-24 22:27] VITALS: BP 111/72; PULSE 60; RESP 19; O2SAT 99
[2024-08-24 22:49] LABS: Cannabinoid Screen Urine Not Detected (Not Detect)
[2024-08-25] VITALS: BP 113/55; PULSE 61; RESP 16; TEMP 36.7; O2SAT 99
--- NOTE | 2024-08-25 00:26 | ED.GENADULT ---
HPI - General Adult General Chief complaint: Fall Stated complaint: Head inj Time Seen by Provider: 08/24/24 21:12 Source: patient and family Limitations: no limitations History of Present Illness ED Provider: Tammy Camacho PA-C HPI narrative: 38-year-old male presents after fall. Patient states he tripped and fell over a dog gate, falling backward with all his weight, striking his head. No loss of consciousness, however the patient has been lethargic since the fall. He does not use a blood thinner. His significant other is explaining that he is currently being worked up for a seizure disorder, he has seen at [facility]. He just had a screening MRI of the brain at [facility], the study was negative. Related Data Previous Rx's ?Medication ?Instructions ?Recorded famotidine 20 mg tablet (Pepcid) 20 mg PO DAILY #30 tabs 02/06/21 naproxen 500 mg tablet 500 mg PO BID PRN pain 7 days #14 07/02/22 tabs Allergies Allergy/AdvReac Type Severity Reaction Status Date / Time No Known Allergies Allergy Unverified 08/24/24 21:09 Review of Systems Review of Systems: Yes all other systems are reviewed and are negative Constitutional: Constitutional: Denies fatigue, Denies fever(s) and Reports headache(s) ENT: Denies dizziness, Reports headache(s) and Denies neck pain Cardiovascular: Cardiovascular: Denies chest pain and Denies dyspnea Respiratory: Respiratory: Denies cough and Denies dyspnea Gastrointestinal: Gastrointestinal: Denies abdominal pain, Denies nausea and Denies vomiting Musculoskeletal: Musculoskeletal: Denies back pain and Denies neck pain Neurologic: Denies dizziness and Reports headache(s) Endocrine: Endocrine: Denies fatigue [facility] Past Medical History Attestation statement: The following information was validated with the patient. Medical History Asthma Heart murmur Pneumothorax Social History Social History Smoked in Last 30 Days: No Use of substances other than those prescribed or required for medical reasons: No Advance Directives: No Advance Directives Information Provided: No Physical Exam ED Vital Signs: Vital Signs - 24 hr 08/24/24 21:23 08/24/24 22:27 08/25/24 00:00 Temperature 97.9 F 98.1 F Pulse Rate 77 60 61 Respiratory Rate 12 19 16 Blood Pressure 115/73 111/72 113/55 L Pulse Oximetry 97 99 99 Oxygen Delivery Method Room Air Room Air Room Air 08/25/24 01:37 Temperature 98.1 F Pulse Rate 61 Respiratory Rate 16 Blood Pressure 113/55 L Pulse Oximetry 99 Oxygen Delivery Method Room Air BMI result Body Mass Index 18.4 Const Other: Alert well-appearing no evidence of head trauma on exam Orientation/consciousness: patient oriented x3 Resp Effort & Inspection: normal respiratory effort Cardio Other: Normal peripheral perfusion Skin Other: Warm dry no rash Neuro General: patient oriented x3, gait normal, no focal motor deficits and CN's II-XI intact bilaterally Psych Other: Cooperative Medications Administered Discontinued Medications Generic Name Dose Route Start Last Admin Trade Name Yonasq PRN Reason Stop Dose Admin Diazepam 5 mg 08/24/24 21:12 08/24/24 22:18 Diazepam 10 Mg/2 Ml Cartridge IVPUSH 08/24/24 21:13 Not Given STAT STA Sodium Chloride 1,000 mls @ 999 mls/hr 08/24/24 21:15 08/24/24 22:25 Ns IV 08/24/24 22:15 Infused .Q1H1M LAURITA Infusion Medical Decision Making Medical Decision Making MDM Narrative: 38-year-old male presents after fall. Patient states he tripped and fell over a dog gate, falling backward with all his weight, striking his head. No loss of consciousness, however the patient has been lethargic since the fall. He does not use a blood thinner. His significant other is explaining that he is currently being worked up for a seizure disorder, he has seen at [facility]. He just had a screening MRI of the brain at [facility], the study was negative. The patient admits to having a drink of alcohol today. No chronic issues History: Per patient I have considered the following differential diagnoses: Intracranial hemorrhage, contusion, concussion, cervical spine injury, intoxication Plan: Given the patient is somewhat altered, all you will scan his head and neck. In regard to the seizure activity, he has had a recent negative MRI, his EEG result is pending, I will try to obtain records. It may be clinically relevant. The patient may also be intoxicated, he does admit to alcohol use. We will screen basic labs, drug screen and ethanol. I have independently reviewed the following tests: Labs: No leukocytosis, no electrolyte abnormality, ethanol 22, drug screen negative CT brain:IMPRESSION: No acute intracranial abnormality by CT. CT cervical spine:MPRESSION: 1. No acute fracture of the cervical spine. 2. 1 cm nodule right lobe of the thyroid. Recommend outpatient ultrasound. Lab Data 08/24/24 21:21 08/24/24 21:21 Labs: Lab Results 08/24/24 08/24/24 Range/Units 21:21 22:27 WBC 4.1 L (4.8-10.8) X10*3/uL RBC 4.03 L (4.60-5.80) X10*6/uL Hgb 11.8 L (14.0-18.0) g/dl Hct 33.3 L (42.0-52.0) % MCV 82.6 (80.0-98.0) fL MCH 29.3 (27.0-33.0) pg MCHC 35.4 (31.0-36.0) g/dl RDW 11.9 (11.0-16.0) % Plt Count 252 (160-400) X10*3/uL MPV 9.8 (9.4-12.4) fL Immature Gran % (Auto) 0.2 (0.0-0.4) % Neut % (Auto) 48.3 (45-73) % Lymph % (Auto) 40.6 H (20-40) % [place] % (Auto) 9.4 (2-11) % Eos % (Auto) 1.0 (0-4) % Baso % (Auto) 0.5 (0-2) % Lymph # (Auto) 1.7 (1.2-4.9) X10*3/uL [place] # (Auto) 0.4 (0.1-1.2) X10*3/uL Eos # (Auto) 0.0 (0.0-0.4) X10*3/uL Baso # (Auto) 0.0 (0.0-0.2) X10*3/uL Abs Immat Gran (auto) 0.01 (0.00-0.03) X10*3/uL Absolute Neuts (auto) 2.0 (2.0-8.3) x10*3/uL Absolute Nucleated RBC 0.000 (0.0-0.012) X10*3/uL Nucleated RBC % (auto) 0.0 (0.0-0.2) /100WBC Sodium 140 (135-145) mmol/L Potassium 3.2 L (3.3-5.1) mmol/L Chloride 107 (96-108) mmol/L Carbon Dioxide 22 (22-29) mmol/L Anion Gap 14 (12-20) BUN 12 (9-16) mg/dL Creatinine 1.02 (0.5-1.4) mg/dL Estim Creat Clear Calc 68.1 Estimated GFR > 60 Random Glucose 94 (60-115) mg/dL Calcium 8.6 (8.4-10.2) mg/dL Magnesium 1.9 (1.6-2.6) mg/dL Total Bilirubin 0.4 (0.0-1.0) mg/dL AST 21 (5-37) U/L ALT 16 (0-40) U/L Alkaline Phosphatase 43 (39-117) U/L Total Protein 6.7 (6.5-8.0) g/dL Albumin 4.3 (3.5-5.0) g/dL Urine Opiates Screen Not Detected (Not Detect) Ur Buprenorphine Scrn Not Detected (Not Detect) ng/mL Ur Oxycodone Screen Not Detected (Not Detect) ng/mL Urine Methadone Screen Not Detected (Not Detect) ng/mL Urine Fentanyl Screen Not Detected (Not Detect) Ur Barbiturates Screen Not Detected (Not Detect) Ur Phencyclidine Scrn Not Detected (Not Detect) Ur Amphetamines Screen Not Detected (Not Detect) U Benzodiazepines Scrn Not Detected (Not Detect) Urine Cocaine Screen Not Detected (Not Detect) U Marijuana (THC) Screen Not Detected (Not Detect) Ethyl Alcohol 22 mg/dL Discharge Plan Discharge Clinical Impression: Concussion without loss of consciousness Patient Disposition: Home, Self-Care Instructions: Concussion (ED), Post Concussion Syndrome (ED) Additional Instructions: The CT scan of your brain and cervical spine were normal. You may develop a concussion. I have provided you with information to read about this condition. Follow up with your primary care provider as needed. Prescriptions: No Action famotidine [Pepcid] 20 mg tablet 20 mg PO DAILY Qty: 30 3RF naproxen 500 mg tablet 500 mg PO BID PRN (Reason: pain) 7 Days Qty: 14 0RF Interventions: ED Discharge Assessment Last Done: 08/25/24 01:37 Discharge Date/Time: 08/25/24 01:39 Print Language: New Zealander
[2024-08-25 01:37] VITALS: BP 113/55; PULSE 61; RESP 16; TEMP 36.7; O2SAT 99
== END 2024-08-25 01:39 | disposition home or self-care (01) ==
PROVIDERS: Physician Assistant Medical; Emergency Provider Emergency Medicine
DX: R51.9 Headache, unspecified (principal); S06.0X0D Concussion without loss of consciousness, subsequent encounter; W01.0XXD Fall on same level from slipping, tripping and stumbling without subsequent striking against object, subsequent encounter; Z79.899 Other long term (current) drug therapy; F10.90 Alcohol use, unspecified, uncomplicated; Y90.1 Blood alcohol level of 20-39 mg/100 ml
CPT/HCPCS: 36415; 70450; 72125; 80053; 80307; 83735; 85025; 93005; 96360; 99284; 99285

== ENCOUNTER → 2024-08-24 21:06 | Outpatient (BNV) | payer MEDICARE, MEDICAID, SELFPAY | PROVIDERS: Emergency Provider Emergency Medicine; Visit Provider Internal Medicine Cardiovascular Disease | DX: I45.10 Unspecified right bundle-branch block (principal) | CPT/HCPCS: 93010 ==

== ENCOUNTER → 2024-08-24 21:10 | Outpatient (BNV) | payer MEDICARE, MEDICAID, SELFPAY | PROVIDERS: Emergency Provider Emergency Medicine; Visit Provider Radiology Neuroradiology | DX: E04.1 Nontoxic single thyroid nodule (principal); S09.90XA Unspecified injury of head, initial encounter | CPT/HCPCS: 70450; 72125 ==